=== PATIENT | female | born 1965 | race Caucasian/White ===

== ENCOUNTER 2017-10-27 07:16 | Day surgery (SDC) | payer MEDICARE ==
[2017-10-23 13:49] VITALS: BMI 30.5
[2017-10-27] MEDS ORDERED: MIDAZOLAM HCL 2 MG/2 ML SINGLE DOSE VIAL ONE ×2 (10:30)
[2017-10-27] MEDS ORDERED: PROPOFOL 20 ML ONE (10:33)
[2017-10-27] MEDS ORDERED: SUCCINYLCHOLINE CHLORIDE 200 MG/10 ML VIAL ONE (10:34)
[2017-10-27] MEDS ORDERED: ePHEDrine SULFATE 50 MG/1 ML AMPULE ONE (11:36)
--- NOTE | 2017-10-27 12:01 | OP ---
Operative Note - Note: Operative Date: 10/27/17 Pre-Operative Diagnosis: bladder tumor/foreign body in bladder Operation: cystoscopy/bladder biopsy/ trans urethral vaporization of bladder tumor/laser excision of foreign body. Findings: posterior wall bladder mass measuring 6 cm by 6 cm proline suture in trigonal area/bladder neck Post-Operative Diagnosis: Same as Pre-op Surgeon: Noe Min Anesthesia: General Specimens Removed: bladder biopsy specimens. suture material
[2017-10-27] MEDS ORDERED: ONDANSETRON 4 MG/2 ML VIAL ONE (12:21)
[2017-10-27] MEDS ORDERED: ONDANSETRON 4 MG/2 ML VIAL IVPUSH PRN (12:26)
[2017-10-27] MEDS ORDERED: PROMETHAZINE HCL 25 MG/1 ML VIAL IVPUSH PRN (12:26)
[2017-10-27] MEDS ORDERED: oxyCODONE HCL 5 MG TABLET PO PRN (12:26)
[2017-10-27] MEDS ORDERED: LACTATED RINGERS SOLUTION 1,000 ML IV SCH (12:30)
[2017-10-27 13:27] VITALS: TEMP 97.6
[2017-10-27 14:49] VITALS: BP 120/60; PULSE 68
--- NOTE | 2017-10-27 21:36 | OP ---
DATE OF OPERATION: 10/27/2017 PREOPERATIVE DIAGNOSES: Bladder tumor and foreign body in bladder. POSTOPERATIVE DIAGNOSES: Bladder tumor and foreign body in bladder. PROCEDURE: Cystoscopy, bladder biopsy, transurethral vaporization of bladder tumor, and laser excision of foreign body. ATTENDING: Noe Powers MD ANESTHESIA: General. DESCRIPTION OF OPERATIVE PROCEDURE: The patient was brought in the operating room and placed in supine position on the operating room table. Anesthesia was administered as was preoperative antibiotics. The patient was then placed in the dorsal lithotomy position. Patient has a history of gross painless hematuria. The patient is status post a transvaginal urethropexy many years ago. The patient was noted to have a bladder tumor involving the posterior wall on office cystoscopy. A stitch through the left lateral sidewall extending from the bladder neck into the trigone was noted on cystoscopy. The patient had cystoscopy, and irregular area in the posterior bladder is noted. Biopsies of this area are taken. These are sent to Pathology for analysis. Because of the posterior position of the tumor near the dome of the bladder, it was decided it would be safer to vaporize the bladder tumor in order to avoid the risks of a perforation. Vaporization utilizing the bipolar system is performed. An area of 6 cm x 6 cm is vaporized to the level of the muscle of the bladder. Excellent hemostasis was obtained. No complications were noted. At this point, the holmium laser was utilized, and the Prolene stitch was lasered at 2 points in order to free the stitch. The specimen was sent to the pathologist for review as well. Excellent hemostasis was obtained. An 18-Hungarian catheter was left to straight drainage. No complications were noted. The disposition of the patient was to recovery room. Zeina [id number]
--- NOTE | 2017-10-29 14:16 | PATH ---
Surgical Pathology Report Patient Name: EDILIA JIMENEZ [facility]. Rec. #: [id number] /Age/Gender: 1965 (Age: 51) / F Account: [id number] Location: [facility] SURGICAL Taken: 10/27/2017 Received: 10/27/2017 Reported: 10/29/2017 Physicians: Noe Min Specimen(s) Received A: STITCH FOREIGN BODY B: BLADDER BIOPSY Clinical History Neoplasm of uncertain behavior of bladder Final Diagnosis A. Stitch, foreign body, removal: Suture, foreign body material. MAcroscopic diagnosis. B. Bladder, biopsy: Acute and chronic polypoid cystitis. Electronically Signed Yelena Bacon M.D. Gross Description A. Received fresh labeled "stitch foreign body," is a 1.5 cm in length portion of blue suture material. No soft tissue is present. No sections are submitted, gross only. B. Received in formalin labeled "bladder biopsy," are 2 oakley, irregular portions of soft tissue measuring 0.3 and 0.4 cm in greatest dimension. The specimens are submitted in toto in one cassette. 10/27/201710/27/2017
== END 2017-10-27 14:49 | disposition home or self-care (01) ==
LOC: JASU-SURG 07:16
PROVIDERS: ATTEND Urology
PROC: 0T5B8ZZ Destruction of Bladder, Via Natural or Artificial Opening Endoscopic (ICD-10-PCS; principal; 2017-10-27 09:00)
DX: N30.00 Acute cystitis without hematuria (principal); T19.1XXA Foreign body in bladder, initial encounter; X58.XXXA Exposure to other specified factors, initial encounter; Y93.9 Activity, unspecified; Y92.9 Unspecified place or not applicable; Y99.9 Unspecified external cause status
CPT/HCPCS: 82962; 84703; 88300-TC; 88305-TC

== ENCOUNTER 2020-11-24 09:15 | Day surgery (SDC) | payer OTHER ==
[2020-11-14 11:16] VITALS: BMI 27.8
[2020-11-24] MEDS ORDERED: MIDAZOLAM HCL 2 MG/2 ML SINGLE DOSE VIAL ONE (11:17)
[2020-11-24] MEDS ORDERED: DEXAMETHASONE SOD PHOSPHATE 10 MG/1 ML VIAL ONE (11:17)
[2020-11-24] MEDS ORDERED: ROPIVACAINE HCL 0.5% 30ML VIAL ONE (11:17)
[2020-11-24] MEDS ORDERED: ONDANSETRON 4 MG/2 ML VIAL IVPUSH PRN (12:05)
[2020-11-24] MEDS ORDERED: oxyCODONE HCL 5 MG TABLET PO PRN (12:05)
[2020-11-24] MEDS ORDERED: LACTATED RINGERS SOLUTION 1,000 ML IV SCH (12:15)
[2020-11-24] MEDS ORDERED: PROPOFOL 20 ML ONE (12:17)
[2020-11-24] MEDS ORDERED: LIDOCAINE HCL/PF 2% SDV 5ML VIAL ONE (12:20)
[2020-11-24] MEDS ORDERED: SEVOFLURANE 250 ML BTL ONE (12:20)
[2020-11-24] MEDS ORDERED: EPHEDRINE SULFATE/0.9% NACL/PF 50 MG/10 ML SYRINGE NR ONE (12:51)
[2020-11-24] MEDS ORDERED: DEXAMETHASONE SOD PHOSPHATE 4 MG/1 ML VIAL ONE (13:04)
[2020-11-24] MEDS ORDERED: ONDANSETRON 4 MG/2 ML VIAL ONE ×2 (13:04→14:10)
[2020-11-24 16:06] VITALS: BP 124/74; PULSE 83; TEMP 97.8
== END 2020-11-24 16:06 | disposition home or self-care (01) ==
LOC: FASU 09:15
PROVIDERS: ATTEND Orthopaedic Surgery
PROC: 0LQ14ZZ Repair Right Shoulder Tendon, Percutaneous Endoscopic Approach (ICD-10-PCS; 2020-11-24)
PROC: 0PB94ZZ Excision of Right Clavicle, Percutaneous Endoscopic Approach (ICD-10-PCS; 2020-11-24)
PROC: 0RBJ4ZZ Excision of Right Shoulder Joint, Percutaneous Endoscopic Approach (ICD-10-PCS; 2020-11-24)
PROC: 0RNJ4ZZ Release Right Shoulder Joint, Percutaneous Endoscopic Approach (ICD-10-PCS; principal; 2020-11-24 12:44)
DX: M75.121 Complete rotator cuff tear or rupture of right shoulder, not specified as traumatic (principal); M75.01 Adhesive capsulitis of right shoulder; M75.41 Impingement syndrome of right shoulder; S46.111A Strain of muscle, fascia and tendon of long head of biceps, right arm, initial encounter; S43.431A Superior glenoid labrum lesion of right shoulder, initial encounter; E11.9 Type 2 diabetes mellitus without complications; X58.XXXA Exposure to other specified factors, initial encounter; Y92.9 Unspecified place or not applicable; Y93.9 Activity, unspecified
CPT/HCPCS: 82962; 88304-TC; 94760; J1100